=== PATIENT | female | born 1995 | race American Indian/Alaskan Native ===

== ENCOUNTER 2018-01-14 12:43 | Emergency (ER) | payer MEDICAID, OTHER ==
[2018-01-14 13:06] VITALS: BP 142/89
--- NOTE | 2018-01-14 15:21 | Emergency Department Report ---
[facility] Chief Complaint: Eye Problems Stated Complaint: RIGHT EYE PAIN Time Seen by Provider: 01/14/18 15:16 Severity: mild Symptoms: Yes Eye Itching, Yes Eye Redness, Yes Eye Pain, Yes Mucous Drainage, Yes Purulent Drainage, No Blurred Vision, No Preceding URI, No H/O Allergic Rhinitis, No Contact Lens Use, No Trauma, No Fever, No Headache ED Review of Systems ROS: Stated complaint: RIGHT EYE PAIN Other details as noted in HPI Constitutional: denies: chills, fever Eyes: eye pain, eye discharge. denies: vision change ENT: denies: ear pain, throat pain Respiratory: denies: cough, shortness of breath, wheezing Cardiovascular: denies: chest pain, palpitations Endocrine: no symptoms reported Gastrointestinal: denies: abdominal pain, nausea, diarrhea Genitourinary: denies: urgency, dysuria, discharge Musculoskeletal: denies: back pain, joint swelling, arthralgia Skin: denies: rash, lesions Neurological: denies: headache, weakness, paresthesias Psychiatric: denies: anxiety, depression Hematological/Lymphatic: denies: easy bleeding, easy bruising ED Past Medical Hx - Social History Smoking Status: Never Smoker Substance Use Type: None - Medications Home Medications: Home Medications Medication Instructions Recorded Confirmed Last Taken Type Acetaminophen/Codeine [Tylenol #3] 1 tab PO Q6H PRN #7 tab 06/03/16 Unknown Rx Ondansetron [Zofran TAB] 4 mg PO Q8HR PRN #14 tablet 06/03/16 Unknown Rx Pnv No.95/Ferrous Fum/Folic AC 1 each PO QDAY #31 tablet 06/03/16 Unknown Rx [ Vitamin Tablet] Cetirizine HCl [ZyrTEC] 10 mg PO DAILY #30 capsule 01/14/18 Unknown Rx Ibuprofen 800 mg PO TID PRN #30 tablet 01/14/18 Unknown Rx Polymyxin B Sulf/Trimethoprim 10 ml OP Q4H #10 ml 01/14/18 Unknown Rx [Polytrim Eye Drops] [facility] Exam - Exam General: Vital signs noted. No distress. Alert and acting appropriately. Eye Exam: Left Mucous Discharge, Left Purulent Discharge, Both EOMI, Neither Injection, Neither Chemosis, Neither Abnormal Pupil, Neither Eye Foreign Body, Neither Lid Foreign Body, Neither Photophobia HEENT: No Nasal Congestion, No Pharyngeal Erythema Remainder of HEENT: Normal Lungs: Yes Clear Lung Sounds, Yes Good Air Exchange, No Wheezes, No Stridor, No Cough, No Nasal Flaring, No Retractions, No Use of Accessory Muscles ED Course Vital Signs 01/14/18 13:03 Temperature 99.0 F Pulse Rate 113 H Respiratory 16 Rate Blood Pressure 142/89 O2 Sat by Pulse 100 Oximetry ED Medical Decision Making - Medical Decision Making Mrs. right eyelid hordeolum no visual change patient is PERRLA EOMI mild conjunctival erythema right no globe pain no pain with range of motion of photophobia visual acuity is 20/20 bilaterally clear drainage at this time patient states. Purulent drainage in a.m. plan Polytrim eyedrops every 3-4 hours while awake 7 days ibuprofen when necessary pain Zyrtec by mouth daily follow-up with ophthalmology in 2-3 days Critical care attestation.: If time is entered above; I have spent that time in minutes in the direct care of this critically ill patient, excluding procedure time. ED Disposition Clinical Impression: Andrew Qualifiers: Laterality: right Eyelid: upper Qualified Code(s): H00.011 - Hordeolum externum right upper eyelid Disposition: DC-01 TO HOME OR SELFCARE Is pt being admited?: No Does the pt Need Aspirin: No Condition: Good Instructions: Andrew (ED) Prescriptions: Cetirizine HCl [ZyrTEC] 10 mg PO DAILY #30 capsule Ibuprofen 800 mg PO TID PRN #30 tablet PRN Reason: Pain Polymyxin B Sulf/Trimethoprim [Polytrim Eye Drops] 10 ml OP Q4H #10 ml Referrals: JOSÉ MIGUEL HARRELL MD [Staff Physician] - 3-5 Days Forms: Work/School Release Form(ED) Time of Disposition: 15:23
== END 2018-01-14 15:28 | disposition home or self-care (01) ==
LOC: ED 12:43
DX: H00.011 Hordeolum externum right upper eyelid (principal)
CPT/HCPCS: 99283

== ENCOUNTER 2018-04-13 20:44 | Emergency (ER) | payer OTHER ==
[2018-04-13 23:18] VITALS: BP 149/84
[2018-04-13] MEDS ORDERED: MOTRIN PO ONE (23:26)
--- NOTE | 2018-04-14 00:40 | XRay Report ---
FINAL REPORT EXAM: XR FOOT 2V RT HISTORY: swollen and painful right foot TECHNIQUE: Two views of right foot PRIORS: None. FINDINGS: The bones are normally aligned and mineralized. The joint spaces are well-preserved. There is no evidence of acute fracture. There is mild dorsal soft tissue swelling at the level of the metatarsals. IMPRESSION: No evidence of acute fracture or subluxation. Mild dorsal soft tissue swelling at the level of the metatarsals
--- NOTE | 2018-04-14 04:23 | Emergency Department Report ---
ED Animal Bite HPI - General Chief Complaint: Extremity Injury, Upper Stated Complaint: RT FOOT SWOLLEN Time Seen by Provider: 04/14/18 04:14 Source: patient Mode of arrival: Ambulatory Limitations: No Limitations - History of Present Illness Initial Comments: 23-year-old [place] female comes in complaint of swollen right foot 2 days. 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 Patient has not taken anything for pain. She has no past medical history currently takes no medication and has no known drug allergies. Patient denies any recent trauma to her foot. She is not sure what happened to her foot. -: days(s) (2) Right: Foot Animal: other (unsure) Severity scale (0 -10): 10 - Related Data Patient Tetanus UTD: Yes Previous Rx's Medication Instructions Recorded Last Taken Type Acetaminophen/Codeine [Tylenol #3] 1 tab PO Q6H PRN #7 tab 06/03/16 Unknown Rx Ondansetron [Zofran TAB] 4 mg PO Q8HR PRN #14 tablet 06/03/16 Unknown Rx Pnv No.95/Ferrous Fum/Folic AC 1 each PO QDAY #31 tablet 06/03/16 Unknown Rx [ Vitamin Tablet] Cetirizine HCl [ZyrTEC] 10 mg PO DAILY #30 capsule 01/14/18 Unknown Rx Polymyxin B Sulf/Trimethoprim 10 ml OP Q4H #10 ml 01/14/18 Unknown Rx [Polytrim Eye Drops] Ibuprofen 800 mg PO TID PRN #30 tablet 04/14/18 Unknown Rx Allergies Allergy/AdvReac Type Severity Reaction Status Date / Time No Known Allergies Allergy Verified 06/15/14 02:07 ED Review of Systems ROS: Stated complaint: RT FOOT SWOLLEN Other details as noted in HPI Comment: All other systems reviewed and negative Constitutional: denies: chills, fever Musculoskeletal: other (right foot swollen) ED Past Medical Hx - Past Medical History Previous Medical History?: No - Surgical History Past Surgical History?: Yes Additional Surgical History: c sec - Social History Smoking Status: Current Every Day Smoker Substance Use Type: Alcohol - Medications Home Medications: Home Medications Medication Instructions Recorded Confirmed Last Taken Type Acetaminophen/Codeine [Tylenol #3] 1 tab PO Q6H PRN #7 tab 06/03/16 Unknown Rx Ondansetron [Zofran TAB] 4 mg PO Q8HR PRN #14 tablet 06/03/16 Unknown Rx Pnv No.95/Ferrous Fum/Folic AC 1 each PO QDAY #31 tablet 06/03/16 Unknown Rx [ Vitamin Tablet] Cetirizine HCl [ZyrTEC] 10 mg PO DAILY #30 capsule 01/14/18 Unknown Rx Polymyxin B Sulf/Trimethoprim 10 ml OP Q4H #10 ml 01/14/18 Unknown Rx [Polytrim Eye Drops] Ibuprofen 800 mg PO TID PRN #30 tablet 04/14/18 Unknown Rx ED Physical Exam - General Limitations: No Limitations General appearance: alert, in no apparent distress - Eye Eye exam: Present: EOMI - Extremities Exam Extremities exam: Absent: tenderness, joint swelling - Neurological Exam Neurological exam: Present: alert, oriented X3, normal gait - Psychiatric Psychiatric exam: Present: agitated - Expanded Skin Exam Expanded Type of lesion: Present: bite/sting Description of rash: Present: erythematous (mild swelling localized to the bite or the entrance of dictation), swelling (mild swelling localized to the bite or the entrance of dictation). Absent: tenderness ED Course Vital Signs 04/13/18 21:46 Temperature 99.0 F Pulse Rate 102 H Respiratory 18 Rate Blood Pressure 149/84 O2 Sat by Pulse 99 Oximetry Critical care attestation.: If time is entered above; I have spent that time in minutes in the direct care of this critically ill patient, excluding procedure time. ED Disposition Disposition: DC-01 TO HOME OR SELFCARE Is pt being admited?: No Does the pt Need Aspirin: No Condition: Stable Instructions: Insect Bite or Sting (ED) Additional Instructions: Please take pain medication as needed. He can apply Neosporin or triple antibiotic to the point of entrance. Follow-up with her primary care provider if symptoms persist or gets worse. Prescriptions: Ibuprofen 800 mg PO TID PRN #30 tablet PRN Reason: Pain Referrals: PRIMARY CARE, [Primary Care Provider] - 3-5 Days [facility] [Provider Group] - 3-5 Days Forms: Work/School Release Form(ED)
== END 2018-04-14 04:30 | disposition home or self-care (01) ==
LOC: ED 20:44
DX: S90.861A Insect bite (nonvenomous), right foot, initial encounter (principal); F17.200 Nicotine dependence, unspecified, uncomplicated; W57.XXXA Bitten or stung by nonvenomous insect and other nonvenomous arthropods, initial encounter; Y93.89 Activity, other specified; Y92.89 Other specified places as the place of occurrence of the external cause; Y99.8 Other external cause status
CPT/HCPCS: 99283

== ENCOUNTER 2018-11-12 16:56 | Emergency (ER) | payer MEDICAID, OTHER ==
--- NOTE | 2018-11-12 17:05 | Emergency Department Report ---
Blank Doc - Documentation Documentation: This is a 23-year-old female that presents with lower back pain stated happened after waking up. Denies any injuries This initial assessment/diagnostic orders/clinical plan/treatment(s) is/are subject to change based on patient's health status, clinical progression and re-assessment by fellow clinical providers in the ED. Further treatment and workup at subsequent clinical providers discretion. Patient/guardians urged not to elope from the ED as their condition may be serious if not clinically assessed and managed. Initial orders include: 1- Patient sent to [facility] for further evaluation and treatment
[2018-11-12] MEDS ORDERED: DELTASONE PO ONE (17:28)
--- NOTE | 2018-11-12 17:28 | Emergency Department Report ---
ED Back Pain/Injury HPI - General Chief Complaint: Back Pain/Injury Stated Complaint: BACK PAIN Time Seen by Provider: 11/12/18 17:03 Source: patient Limitations: No Limitations - History of Present Illness Complaint: back pain -: Gradual Similar Symptoms Previously: No Place: home Worsens With: movement - Related Data Previous Rx's Medication Instructions Recorded Last Taken Type predniSONE [Deltasone] 20 mg PO DAILY #5 tablet 11/12/18 Unknown Rx Allergies Allergy/AdvReac Type Severity Reaction Status Date / Time No Known Allergies Allergy Verified 11/12/18 16:58 ED Review of Systems ROS: Stated complaint: BACK PAIN Other details as noted in HPI Comment: All other systems reviewed and negative ED Past Medical Hx - Past Medical History Medical history: no medical history Family history: no significant family history ED Back Pain Physical Exam - Exam General: Vital signs noted. No distress. Alert and acting appropriately. Back/Abdomen: No Abdominal Tenderness, No Perithoracic Tenderness, No Perilumbar Tenderness, No Sacroiliac Tenderness, No Flank Tenderness, No Straight Leg Raise Pain Neuro: Yes Normal Sensation, Yes Normal DTR's, Yes Normal Gait, No Motor Weakness ED Course Vital Signs 11/12/18 17:05 Temperature 98.5 F Pulse Rate 100 H Respiratory 16 Rate Blood Pressure 168/103 O2 Sat by Pulse 99 Oximetry Ed Back Pain Tests - Tests Tests: Normal X Rays ED Medical Decision Making - Radiology Data Radiology results: report reviewed, image reviewed XRAY NOTED PAIN WORSE WITH MOVEMENT MEDICATED IN ED DC HOME WITH FOLLOW UP WITH PCP Vital Signs 11/12/18 11/12/18 17:05 17:58 Temperature 98.5 F Pulse Rate 100 H 99 H Respiratory 16 Rate Blood Pressure 168/103 145/89 O2 Sat by Pulse 99 Oximetry Critical care attestation.: If time is entered above; I have spent that time in minutes in the direct care of this critically ill patient, excluding procedure time. ED Disposition Clinical Impression: Musculoskeletal pain Disposition: DC-01 TO HOME OR SELFCARE Is pt being admited?: No Does the pt Need Aspirin: No Condition: Stable Instructions: Musculoskeletal Pain (ED) Additional Instructions: WARM COMPRESSES MED ORDERED TODAY WITH OVER THE COUNTER MOTRIN DIET AND ACTIVITY [employer]ERATED [employer] Referrals: HONEY GRIMM MD [Primary Care Provider] - 3-5 Days Forms: Work/School Release Form Time of Disposition: 18:48
[2018-11-12] MEDS ORDERED: CATAPRES PO ONE (17:29)
[2018-11-12 18:00] VITALS: BP 145/89
[2018-11-12] MEDS ORDERED: TORADOL IM ONE (18:52)
--- NOTE | 2018-11-12 19:23 | XRay Report ---
PROCEDURE: XR CHEST ROUTINE 2V TECHNIQUE: PA and lateral chest radiographs were obtained. HISTORY: PAIN COMPARISONS: None. FINDINGS: Heart: Normal. Mediastinum/Vessels: Normal. Lungs/Pleural space: No infiltrate, effusion, or pneumothorax. Bony thorax: No acute osseous abnormality. IMPRESSION: No radiographic evidence of acute abnormality. This document is electronically signed by Fiona Rodriguez MD., November 12 2018 07:21:03 PM ET
== END 2018-11-12 19:33 | disposition home or self-care (01) ==
LOC: ED 16:56
DX: M54.89 Other dorsalgia (principal)
CPT/HCPCS: 71046; 96372; 99283; J1885; J7512

== ENCOUNTER 2019-06-05 21:15 | Emergency (ER) | payer SELFPAY ==
--- NOTE | 2019-06-05 21:26 | Emergency Department Report ---
Chief Complaint: Vaginal Bleeding Stated Complaint: BLEEDING, 9 WEEKS - HPI History of Present Illness: 24yo BF states that she is 9 weeks and she has painless vaginal bleeding x 1 day. She recently saw her OBGYN 3 days ago with no abnormalities reported. MSE screening note: Focused history and physical exam performed. Due to findings the following was ordered: ED Disposition for MSE Condition: Stable
[2019-06-05 21:49] LABS: Basophils % (Auto) 0.6 % (0.0-1.8); Eosinophils # (Auto) 0.2 K/mm3 (0.0-0.4); Eosinophils % (Auto) 2.8 % (0.0-4.3); Hematocrit 33.4 % (30.3-42.9); Hemoglobin 10.6 gm/dl (10.1-14.3); Lymphocytes # (Auto) 1.8 K/mm3 (1.2-5.4); Lymphocytes % (Auto) 32.2 % (13.4-35.0); Mean Corpuscular HGB Conc 32 % (30-34); Mean Corpuscular Volume 79 fl (79-97); Monocytes # (Auto) 0.4 K/mm3 (0.0-0.8); Monocytes % (Auto) 8.2 % (0.0-7.3); Platelet Count 245 K/mm3 (140-440); Red Blood Count 4.23 M/mm3 (3.65-5.03); Red Cell Distribution Width 18.8 % (13.2-15.2)
[2019-06-05 22:12] LABS: Alanine Aminotransferase 9 units/L (7-56); Albumin 4.1 g/dL (3.9-5); BUN/Creatinine Ratio 12; Blood Urea Nitrogen 6 mg/dL (7-17); Calcium 9.2 mg/dL (8.4-10.2); Hemolysis Index 4
[2019-06-06 00:36] LABS: Bilirubin,Urine NEG (Negative); Blood,Urine LG (Negative); Color,Urine Yellow (Yellow); Mucus,Urine FEW /HPF
--- NOTE | 2019-06-06 01:36 | Emergency Department Report ---
ED Female HPI - General Chief complaint: Vaginal Bleeding Stated complaint: BLEEDING, 9 WEEKS Time Seen by Provider: 06/05/19 23:48 Source: patient Mode of arrival: Ambulatory Limitations: No Limitations - History of Present Illness Initial comments: This is a 24-year-old female here report that she has vaginal bleeding and she is 9 weeks and this started today. She said bleeding is only when she used the bathroom to urinate she sees some blood on toilet paper. She does have [facility] and her was verified at this Center. She denies any abdominal or back pain. Denies any vaginal discharge or urinary burning frequency. Pain is 0 out of 10. MD Complaint: vaginal bleeding Severity scale (0 -10): 0 Associated Symptoms: vaginal bleeding. denies: vaginal discharge, abdominal pain, nausea/vomiting, fever/chills, headaches, loss of appetite, dysuria, hematuria, rash, seizure, shortness of breath, syncope, weakness - Related Data Sexually active: Yes Previous Rx's Medication Instructions Recorded Last Taken Type predniSONE [Deltasone] 20 mg PO DAILY #5 tablet 11/12/18 Unknown Rx Omeprazole 20 mg PO DAILY #30 capsule. 04/28/19 Unknown Rx Sucralfate [Carafate] 1 gm PO ACHS 7 Days #21 tablet 04/28/19 Unknown Rx Allergies Allergy/AdvReac Type Severity Reaction Status Date / Time No Known Allergies Allergy Verified 11/12/18 16:58 ED Review of Systems ROS: Stated complaint: BLEEDING, 9 WEEKS Other details as noted in HPI Constitutional: denies: chills, fever ENT: denies: throat pain, congestion Respiratory: denies: cough, shortness of breath, wheezing Cardiovascular: denies: chest pain, palpitations, edema, syncope Gastrointestinal: denies: abdominal pain, nausea, vomiting Genitourinary: other (vaginal bleeding). denies: urgency, dysuria, frequency, hematuria, discharge Skin: denies: rash Neurological: denies: headache ED Past Medical Hx - Past Medical History Previous Medical History?: Yes Additional medical history: Obesity - Surgical History Past Surgical History?: Yes Additional Surgical History: c sec - Family History Family history: hypertension - Social History Smoking Status: Never Smoker Substance Use Type: None - Medications Home Medications: Home Medications Medication Instructions Recorded Confirmed Last Taken Type predniSONE [Deltasone] 20 mg PO DAILY #5 tablet 11/12/18 Unknown Rx Omeprazole 20 mg PO DAILY #30 capsule. 04/28/19 Unknown Rx Sucralfate [Carafate] 1 gm PO ACHS 7 Days #21 tablet 04/28/19 Unknown Rx ED Physical Exam - General Limitations: No Limitations General appearance: alert, in no apparent distress - Head Head exam: Present: atraumatic, normocephalic - Eye Eye exam: Present: normal appearance, PERRL - ENT ENT exam: Present: normal exam, normal orophraynx, mucous membranes moist - Neck Neck exam: Present: normal inspection, full ROM. Absent: tenderness - Respiratory Respiratory exam: Present: normal lung sounds bilaterally. Absent: respiratory distress, chest wall tenderness - Cardiovascular Cardiovascular Exam: Present: normal rhythm, tachycardia, normal heart sounds - GI/Abdominal GI/Abdominal exam: Present: soft, normal bowel sounds. Absent: distended, tenderness, guarding, rebound, rigid, organomegaly - Extremities Exam Extremities exam: Present: normal inspection, full ROM, normal capillary refill, other (No cce. + 2 pulses in all extremities, no neurovascular compromise). Absent: tenderness, pedal edema, joint swelling - Back Exam Back exam: Present: normal inspection, full ROM, other (ablates without any difficulties). Absent: tenderness, CVA tenderness (R), CVA tenderness (L), muscle spasm, paraspinal tenderness, vertebral tenderness, rash noted - Neurological Exam Neurological exam: Present: alert, oriented X3, normal gait - Psychiatric Psychiatric exam: Present: normal affect, normal mood - Skin Skin exam: Present: warm, dry, intact, normal color. Absent: rash ED Course Vital Signs 06/05/19 21:20 Temperature 98.2 F Pulse Rate 105 H Respiratory 18 Rate Blood Pressure 144/82 O2 Sat by Pulse 98 Oximetry Vital Signs 06/05/19 06/06/19 21:20 02:48 Temperature 98.2 F Pulse Rate 105 H 84 Respiratory 18 Rate Blood Pressure 144/82 O2 Sat by Pulse 98 Oximetry - Reevaluation(s) Reevaluation #1: 06/06/19 02:51 Patient is stable in no acute distress. Ultrasound result discussed with her and I told her that radiologist recommended follow-up ultrasound and that she needs to call her [facility] Dr. Pulido on Saturday to schedule an appointment and she voiced understanding. ED Medical Decision Making - Lab Data Result diagrams: 06/05/19 21:34 06/05/19 21:34 Lab Results 06/05/19 06/05/19 06/05/19 Range/Units 21:34 21:34 23:08 WBC 5.4 (4.5-11.0) K/mm3 RBC 4.23 (3.65-5.03) M/mm3 Hgb 10.6 (10.1-14.3) gm/dl Hct 33.4 (30.3-42.9) % MCV 79 (79-97) fl MCH 25 L (28-32) pg MCHC 32 (30-34) % RDW 18.8 H (13.2-15.2) % Plt Count 245 (140-440) K/mm3 Lymph % (Auto) 32.2 (13.4-35.0) % [place] % (Auto) 8.2 H (0.0-7.3) % Eos % (Auto) 2.8 (0.0-4.3) % Baso % (Auto) 0.6 (0.0-1.8) % Lymph # 1.8 (1.2-5.4) K/mm3 [place] # 0.4 (0.0-0.8) K/mm3 Eos # 0.2 (0.0-0.4) K/mm3 Baso # 0.0 (0.0-0.1) K/mm3 Seg Neutrophils % 56.2 (40.0-70.0) % Seg Neutrophils # 3.1 (1.8-7.7) K/mm3 Sodium 137 (137-145) mmol/L Potassium 3.9 (3.6-5.0) mmol/L Chloride 101.8 (98-107) mmol/L Carbon Dioxide 22 (22-30) mmol/L Anion Gap 17 mmol/L BUN 6 L (7-17) mg/dL Creatinine 0.5 L (0.7-1.2) mg/dL Estimated GFR > 60 ml/min BUN/Creatinine Ratio 12 % Glucose 97 (65-100) mg/dL Calcium 9.2 (8.4-10.2) mg/dL Total Bilirubin < 0.20 (0.1-1.2) mg/dL AST 12 (5-40) units/L ALT 9 (7-56) units/L Alkaline Phosphatase 60 (35-129) units/L Total Protein 8.4 H (6.3-8.2) g/dL Albumin 4.1 (3.9-5) g/dL Albumin/Globulin Ratio 1.0 % HCG, Quant 50526 H (0-4) mIU/mL Urine Color (Yellow) Urine Turbidity (Clear) Urine pH (5.0-7.0) Ur Specific [place] (1.003-1.030) Urine Protein (Negative) mg/dL Urine Glucose (UA) (Negative) mg/dL Urine Ketones (Negative) mg/dL Urine Blood (Negative) Urine Nitrite (Negative) Urine Bilirubin (Negative) Urine Urobilinogen (<2.0) mg/dL Ur Leukocyte Esterase (Negative) Urine WBC (Auto) (0.0-6.0) /HPF Urine RBC (Auto) (0.0-6.0) /HPF U Epithel Cells (Auto) (0-13.0) /HPF Urine Mucus /HPF Blood Type 06/05/19 06/05/19 Range/Units 23:08 Unknown WBC (4.5-11.0) K/mm3 RBC (3.65-5.03) M/mm3 Hgb (10.1-14.3) gm/dl Hct (30.3-42.9) % MCV (79-97) fl MCH (28-32) pg MCHC (30-34) % RDW (13.2-15.2) % Plt Count (140-440) K/mm3 Lymph % (Auto) (13.4-35.0) % [place] % (Auto) (0.0-7.3) % Eos % (Auto) (0.0-4.3) % Baso % (Auto) (0.0-1.8) % Lymph # (1.2-5.4) K/mm3 [place] # (0.0-0.8) K/mm3 Eos # (0.0-0.4) K/mm3 Baso # (0.0-0.1) K/mm3 Seg Neutrophils % (40.0-70.0) % Seg Neutrophils # (1.8-7.7) K/mm3 Sodium (137-145) mmol/L Potassium (3.6-5.0) mmol/L Chloride (98-107) mmol/L Carbon Dioxide (22-30) mmol/L Anion Gap mmol/L BUN (7-17) mg/dL Creatinine (0.7-1.2) mg/dL Estimated GFR ml/min BUN/Creatinine Ratio % Glucose (65-100) mg/dL Calcium (8.4-10.2) mg/dL Total Bilirubin (0.1-1.2) mg/dL AST (5-40) units/L ALT (7-56) units/L Alkaline Phosphatase (35-129) units/L Total Protein (6.3-8.2) g/dL Albumin (3.9-5) g/dL Albumin/Globulin Ratio % HCG, Quant (0-4) mIU/mL Urine Color Yellow (Yellow) Urine Turbidity Clear (Clear) Urine pH 6.0 (5.0-7.0) Ur Specific [place] 1.028 (1.003-1.030) Urine Protein 30 mg/dl (Negative) mg/dL Urine Glucose (UA) Neg (Negative) mg/dL Urine Ketones Neg (Negative) mg/dL Urine Blood Lg (Negative) Urine Nitrite Neg (Negative) Urine Bilirubin Neg (Negative) Urine Urobilinogen 2.0 (<2.0) mg/dL Ur Leukocyte Esterase Tr (Negative) Urine WBC (Auto) 8.0 H (0.0-6.0) /HPF Urine RBC (Auto) 50.0 (0.0-6.0) /HPF U Epithel Cells (Auto) 2.0 (0-13.0) /HPF Urine Mucus Few /HPF Blood Type O POSITIVE Urine culture sent - Radiology Data Radiology results: report reviewed Ultrasound OB transabdominal and transvaginal dictated by radiologist and report reviewed by myself. Findings [facility] [address] [place] [address] Ultrasound Report Signed Patient: JORGE TATE MR#: [id number] : 1995 Acct:[id number] Age/Sex: 24 / F ADM Date: 06/05/19 Loc: ED Attending Dr: Ordering Physician: ROSALINO LOZANO Date of Service: 06/05/19 Procedure(s): US OB <= 14 weeks fetus Accession Number(s): [id number] cc: ROSALINO LOZANO ULTRASOUND OBSTETRIC INDICATION / CLINICAL INFORMATION: vaginal bleeding. Clinical Gestational Age (GA): 10 weeks 0 days TECHNIQUE: Transabdominal and Transvaginal. COMPARISON: None available. FINDINGS: GESTATIONAL SAC: Slightly irregular gestational sac with slightly complex fluid. YOLK SAC: No definite well-defined yolk sac noted. EMBRYO/FETUS: Small embryonic pole. - [place] Length = 0.29 cm = 5 weeks, 6 day(s). - Heart Rate, beats per minute (if present) = not visualized ADNEXA: No significant abnormality. FREE FLUID: None. ADDITIONAL FINDINGS: None. IMPRESSION: 1. Small embryonic pole measuring 5 weeks 6 days. No visualized cardiac activity at this time. 2. Slightly irregular gestational sac with slightly complex fluid. 3. Clinical, laboratory, and sonographic follow-up is recommended. Signer Name: Yousuf Barrera MD Signed: 06/06/2019 1:57 AM Workstation Name: [id number] Transcribed By: DT Dictated By: Ishan Barrera MD Electronically Authenticated By: Ishan Barrera MD Signed Date/Time: 06/06/19156 DD/ 2 TD/TT: - Medical Decision Making 24-year-old female here for vaginal bleeding which turned out to be scant amount of blood when she wiped after urinating. She denies passing any clots. Denies any abdominal pain. Transabdominal and transvaginal OB ultrasound done and dictated by radiologist report reviewed by myself. IMPRESSION: 1. Small embryonic pole measuring 5 weeks 6 days. No visualized cardiac activity at this time. 2. Slightly irregular gestational sac with slightly complex fluid. 3. Clinical, laboratory, and sonographic follow-up is recommended. This was communicated to patient in detail and I told her that she will need to follow-up with her [facility] doctor to call on Saturday to schedule an appointment but if she develops increasing vaginal bleeding, abdominal pain to return to the emergency room MIQU[place]. I discussed with her that this is considered her a threatened miscarriage and that there were no cardiac activity detected at 5 weeks -6 days which is sometimes not unusual. Discharged home in stable condition - Differential Diagnosis miscarriage, threatened miscarriage, vaginal bleeding , UTI Critical care attestation.: If time is entered above; I have spent that time in minutes in the direct care of this critically ill patient, excluding procedure time. ED Disposition Clinical Impression: Threatened , Vaginal bleeding during Disposition: TO HOME OR SELFCARE Is pt being admited?: No Does the pt Need Aspirin: No Condition: Stable Instructions: Threatened Miscarriage (ED) Additional Instructions: Please rest until you are able to follow-up E [employer] [facility] Please do nor insert anything in your vaginal area to include fingers, refrain from having sexual activity, and maintain bedrest until your [employer] evaluates and instruct you further. If your condition worsens, return to the emergency room Referrals: HONEY GRIMM MD [Primary Care Provider] - 06/08/19 follow-up with your [facility], Dr. Pulido [Other] - 06/08/19 FIDEL THURMAN MD [Staff Physician] - 06/08/19 Forms: Work/School Release Form(ED)
--- NOTE | 2019-06-06 02:02 | Ultrasound Report ---
ULTRASOUND OBSTETRIC INDICATION / CLINICAL INFORMATION: vaginal bleeding. Clinical Gestational Age (GA): 10 weeks 0 days TECHNIQUE: Transabdominal and Transvaginal. COMPARISON: None available. FINDINGS: GESTATIONAL SAC: Slightly irregular gestational sac with slightly complex fluid. YOLK SAC: No definite well-defined yolk sac noted. EMBRYO/FETUS: Small embryonic pole. - [place]-Rump Length = 0.29 cm = 5 weeks, 6 day(s). - Heart Rate, beats per minute (if present) = not visualized ADNEXA: No significant abnormality. FREE FLUID: None. ADDITIONAL FINDINGS: None. IMPRESSION: 1. Small embryonic pole measuring 5 weeks 6 days. No visualized cardiac activity at this time. 2. Slightly irregular gestational sac with slightly complex fluid. 3. Clinical, laboratory, and sonographic follow-up is recommended. Signer Name: Yousuf Barrera MD Signed: 06/06/2019 1:57 AM Workstation Name: [id number]
--- NOTE | 2019-06-06 02:02 | Ultrasound Report ---
ULTRASOUND OBSTETRIC INDICATION / CLINICAL INFORMATION: vaginal bleeding. Clinical Gestational Age (GA): 10 weeks 0 days TECHNIQUE: Transabdominal and Transvaginal. COMPARISON: None available. FINDINGS: GESTATIONAL SAC: Slightly irregular gestational sac with slightly complex fluid. YOLK SAC: No definite well-defined yolk sac noted. EMBRYO/FETUS: Small embryonic pole. - [place]-Rump Length = 0.29 cm = 5 weeks, 6 day(s). - Heart Rate, beats per minute (if present) = not visualized ADNEXA: No significant abnormality. FREE FLUID: None. ADDITIONAL FINDINGS: None. IMPRESSION: 1. Small embryonic pole measuring 5 weeks 6 days. No visualized cardiac activity at this time. 2. Slightly irregular gestational sac with slightly complex fluid. 3. Clinical, laboratory, and sonographic follow-up is recommended. Signer Name: Yousuf Barrera MD Signed: 06/06/2019 1:57 AM Workstation Name: [id number]
[2019-06-06 05:17] VITALS: BP 145/88
== END 2019-06-06 03:10 | disposition home or self-care (01) ==
LOC: ED 21:15
DX: O20.0 Threatened abortion (principal); O20.8 Other hemorrhage in early pregnancy; Z79.899 Other long term (current) drug therapy; Z3A.01 Less than 8 weeks gestation of pregnancy
CPT/HCPCS: 36415; 76801; 76817; 80053; 81001; 84702; 85025; 86900; 86901

== ENCOUNTER 2019-06-06 22:40 | Emergency (ER) | payer SELFPAY ==
[2019-06-06] MEDS ORDERED: ACETAMINOPHEN 325 MG TAB ONE (23:55)
[2019-06-06 23:56] LABS: Basophils % (Auto) 0.4 % (0.0-1.8); Eosinophils # (Auto) 0.2 K/mm3 (0.0-0.4); Eosinophils % (Auto) 2.2 % (0.0-4.3); Hemoglobin 10.9 gm/dl (10.1-14.3); Lymphocytes # (Auto) 2.2 K/mm3 (1.2-5.4); Mean Corpuscular HGB Conc 32 % (30-34); Mean Corpuscular Volume 79 fl (79-97); Monocytes # (Auto) 0.5 K/mm3 (0.0-0.8); Monocytes % (Auto) 6.4 % (0.0-7.3); Platelet Count 268 K/mm3 (140-440); Red Cell Distribution Width 19.4 % (13.2-15.2)
[2019-06-07] MEDS ORDERED: ACETAMINOPHEN 325 MG TAB PO ONE (00:06)
--- NOTE | 2019-06-07 01:24 | Ultrasound Report ---
ULTRASOUND OBSTETRIC INDICATION / CLINICAL INFORMATION: Vaginal bleeding. Clinical Gestational Age (GA): 6 weeks 0 days TECHNIQUE: Transabdominal and Transvaginal. COMPARISON: Ultrasound dated 06/06/19 FINDINGS: GESTATIONAL SAC: Previously identified gestational sac in the uterus is no longer present. UTERUS: Mildly thickened and heterogeneous endometrial complex measuring 1.7 cm. No definite increase d vascularity on color Doppler flow. ADNEXA: No significant abnormality. FREE FLUID: None. ADDITIONAL FINDINGS: None. IMPRESSION: 1. Previously identified intrauterine gestational sac is no longer present likely related to miscarri age. Signer Name: Yousuf Barrera MD Signed: 06/07/2019 1:20 AM Workstation Name: [id number]
[2019-06-07 01:33] VITALS: BP 133/88
--- NOTE | 2019-06-07 01:51 | Emergency Department Report ---
HPI - General Chief Complaint: Vaginal Bleeding Time Seen by Provider: 06/07/19 01:24 EST - HPI HPI: Room 41 The pt is a 24 y/o F p/w a cc of vaginal bleeding. The pt is approx 5 weeks gest age and states she developed VB x yd. The pt came to this ED and had an U/S performed which showed and IUP at 5weeks 6 days. The pt states she continued to have vag bleeding going thru ~ 5ppd. Pt denies passage of tissue. Pt states her VB is light. When asked how she is feeling now the pt replies "alright." ED Past Medical Hx - Past Medical History Previous Medical History?: No Additional medical history: Obesity - Surgical History Past Surgical History?: Yes Additional Surgical History: c sec - Family History Family history: no significant - Social History Smoking Status: Never Smoker Substance Use Type: None (denies illicit drug use) - Medications Home Medications: Home Medications Medication Instructions Recorded Confirmed Last Taken Type predniSONE [Deltasone] 20 mg PO DAILY #5 tablet 11/12/18 Unknown Rx Omeprazole 20 mg PO DAILY #30 capsule. 04/28/19 Unknown Rx Sucralfate [Carafate] 1 gm PO ACHS 7 Days #21 tablet 04/28/19 Unknown Rx ED Review of Systems ROS: Stated complaint: PREG 9 WKS/VAG BLEEDING Other details as noted in HPI Constitutional: no symptoms reported Eyes: denies: eye pain ENT: denies: throat pain Respiratory: no symptoms reported Cardiovascular: denies: chest pain Endocrine: no symptoms reported Gastrointestinal: denies: abdominal pain Genitourinary: abnormal menses Physical Exam - Physical Exam Vital Signs: Vital Signs 06/06/19 06/07/19 22:44 01:32 EST Temperature 98.8 F 98.3 F Pulse Rate 117 H 97 H Respiratory 18 20 Rate Blood Pressure 155/86 133/88 O2 Sat by Pulse 97 100 Oximetry Physical Exam: GEN: WD WN F sitting on stretcher in NAD HEENT: NCAT, EOMI NECK:Trachea midline, no stridor CV: rrr no m/r/g Pulm: CTAB. no resp distress ABD: s/nt/nd +BS Neuro: GCS 15 SKIN: no diaphoresis MS: no evidence of acute injury Pelvic: small to moderate amt of blood clots in vault. No active bleeding seen ED Course Vital Signs 06/06/19 06/07/19 22:44 01:32 EST Temperature 98.8 F 98.3 F Pulse Rate 117 H 97 H Respiratory 18 20 Rate Blood Pressure 155/86 133/88 O2 Sat by Pulse 97 100 Oximetry - Consultations Consultation #1: 06/07/19 01:49 EST EDITOR SOUND paged 06/07/19 02:19 Case d/w Dr Henry Lozano. No methergine or cytotec at this time. Have pt f/u in office for further eval if stable ED Medical Decision Making - Lab Data Result diagrams: 06/06/19 23:24 - Radiology Data Radiology results: report reviewed (pelvic u/s), image reviewed (pelvic u/s) [address] [address] Ultrasound Report Signed Patient: JORGE TATE MR#: [id number] : 1995 Acct:[id number] Age/Sex: 24 / F ADM Date: 06/06/19 Loc: ED Attending Dr: Ordering Physician: ROSALINO ZIEGLER Date of Service: 06/06/19 Procedure(s): US OB transvaginal Accession Number(s): [id number] cc: ROSALINO ZIEGLER ULTRASOUND OBSTETRIC INDICATION / CLINICAL INFORMATION: Vaginal bleeding. Clinical Gestational Age (GA): 6 weeks 0 days TECHNIQUE: Transabdominal and Transvaginal. COMPARISON: Ultrasound dated 06/06/19 FINDINGS: GESTATIONAL SAC: Previously identified gestational sac in the uterus is no longer present. UTERUS: Mildly thickened and heterogeneous endometrial complex measuring 1.7 cm. No definite increased vascularity on color Doppler flow. ADNEXA: No significant abnormality. FREE FLUID: None. ADDITIONAL FINDINGS: None. IMPRESSION: 1. Previously identified intrauterine gestational sac is no longer present likely related to miscarriage. Signer Name: Yousuf Barrera MD Signed: 06/07/2019 1:20 AM Workstation Name: [id number] Transcribed By: DT Dictated By: Ishan Barrera MD Electronically Authenticated By: Ishan Barrera MD Signed Date/Time: 06/07/19119 DD/ 4 TD/TT: - Medical Decision Making pt denies pain - Differential Diagnosis spontaneous Critical care attestation.: If time is entered above; I have spent that time in minutes in the direct care of this critically ill patient, excluding procedure time. ED Disposition Clinical Impression: Spontaneous Disposition: DC-01 TO HOME OR SELFCARE Is pt being admited?: No Does the pt Need Aspirin: No Condition: Stable Instructions: Spontaneous Miscarriage (ED) Referrals: PRIMARY CARE, [Primary Care Provider] - 3-5 Days Time of Disposition: 02:20
== END 2019-06-07 03:00 | disposition home or self-care (01) ==
LOC: ED 22:40
DX: O03.9 Complete or unspecified spontaneous abortion without complication (principal); Z3A.01 Less than 8 weeks gestation of pregnancy
CPT/HCPCS: 36415; 76801; 76817; 84702; 85025

== ENCOUNTER 2020-11-23 19:41 | Emergency (ER) | payer MEDICAID ==
--- NOTE | 2020-11-23 20:58 | XRay Report ---
CHEST 2 VIEWS INDICATION / CLINICAL INFORMATION: posterior pain left . COMPARISON: Prior chest radiograph 11/12/2018 FINDINGS: SUPPORT DEVICES: None. HEART / MEDIASTINUM: No significant abnormality. LUNGS / PLEURA: No significant pulmonary or pleural abnormality. No pneumothorax. ADDITIONAL FINDINGS: No significant additional findings. IMPRESSION: 1. No acute findings. No interval change. Signer Name: Palma Valdovinos MD Signed: 11/23/2020 8:54 PM Workstation Name: [id number]
--- NOTE | 2020-11-23 21:00 | XRay Report ---
THORACIC SPINE, 3 VIEWS INDICATION / CLINICAL INFORMATION: Back pain, no known injury. COMPARISON: None available. FINDINGS: Vertebral body heights and disc spaces are well-preserved. I do not see visible fracture of the thora cic spine. Alignment is normal. No significant degenerative change. IMPRESSION: No significant osseous abnormality of the thoracic spine Signer Name: Palma Valdovinos MD Signed: 11/23/2020 8:55 PM Workstation Name: [id number]
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
[2020-11-23 23:14] VITALS: BP 165/88
== END 2020-11-23 23:00 | disposition home or self-care (01) ==
LOC: ED 19:41
DX: M54.9 Dorsalgia, unspecified (principal); E66.9 Obesity, unspecified; Z79.899 Other long term (current) drug therapy; Z98.890 Other specified postprocedural states; Z68.43 Body mass index [BMI] 50.0-59.9, adult
CPT/HCPCS: 71046; 72070

== ENCOUNTER 2022-02-03 12:22 | Emergency (ER) | payer OTHER, MEDICAID ==
[2022-02-03 12:32] VITALS: BP 144/98
[2022-02-03] MEDS ORDERED: ACETAMINOPHEN 500 MG TAB PO ONE (13:06)
[2022-02-03] MEDS ORDERED: IBUPROFEN 600 MG TAB PO ONE (13:06)
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
== END 2022-02-03 15:05 | disposition home or self-care (01) ==
LOC: ED 12:22
DX: S29.011A Strain of muscle and tendon of front wall of thorax, initial encounter (principal); S21.109A Unspecified open wound of unspecified front wall of thorax without penetration into thoracic cavity, initial encounter; M62.830 Muscle spasm of back; I10 Essential (primary) hypertension; E66.9 Obesity, unspecified; Z98.890 Other specified postprocedural states; V89.2XXA Person injured in unspecified motor-vehicle accident, traffic, initial encounter; Y93.89 Activity, other specified; Y92.89 Other specified places as the place of occurrence of the external cause; Y99.8 Other external cause status
CPT/HCPCS: 71046; 72072; 99283